=== PATIENT | female | born 1985 | race Caucasian/White ===

== ENCOUNTER 2022-09-21 12:03 | Outpatient (REF) | payer OTHER, SELFPAY ==
[2022-09-28 13:53] LABS: Parvovirus B19 IgG 5.53; Parvovirus B19 IgM <0.9
== END 2022-09-21 12:04 | disposition home or self-care (01) ==
LOC: HO.MANLDS 12:03
PROVIDERS: Visit Provider Internal Medicine
DX: B34.3 Parvovirus infection, unspecified (principal)
CPT/HCPCS: 36415; 86747